=== PATIENT | female | born 1995 | race African-American/Black ===

== ENCOUNTER 2017-02-15 10:16 | Emergency (ER) | payer SELFPAY ==
[~2017-02-15] VITALS: Ht 170.2 cm; Wt 75.0 kg
[2017-02-15 10:18] VITALS: BP 127/66; PULSE 104; RESP 16; TEMP 99.1; O2SAT 98
--- NOTE | 2017-02-15 11:42 | PD ---
HPI Chief Complaint: Abdominal Pain Time Seen by Provider: 11:24 Travel History International Travel<30 days: No Contact w/Intl Traveler<30days: No Traveled to known affect area: No History of Present Illness HPI 21 year-old female presents to the emergency room for evaluation of bilateral, low pelvic pain for the past 3 days. Pain is constant and steadily worsening. She has not taken anything for symptoms. She reports associated dysuria that started this morning. Associated vaginal spotting started yesterday but no abnormal discharge. She had sex with a new partner 5 days ago but used a condom. Denies urgency, frequency, fever, chills, flank pain, nausea, and vomiting. She is on Depo. States her periods are pretty irregular but she had one 1 week ago. No chronic medical conditions of daily medications. FOR[facility]LY [facility] Past Medical History Medical History: Denies Significant Hx Tetanus Vaccination: < 5 Years Influenza Vaccination: No ?: Not LMP: 02/13/17 Past Surgical History Surgical History: No Previous Surgery Social History Alcohol Use: No Tobacco Use: No Substance Use: Yes (THC) Allergies-Medications (Allergen,Severity, Reaction): Coded Allergies: pineapple (Verified Allergy, Severe, Anaphylaxis, 02/15/17) Reported Meds & Prescriptions Reported Meds & Active Scripts Active No Active Prescriptions or Reported Medications Review of Systems Except as stated in HPI: all other systems reviewed are Neg Physical Exam Narrative GENERAL: Well-nourished, well-developed female in no acute distress. Afebrile. Ambulatory. Moving easily in bed. SKIN: Focused skin assessment warm/dry. HEAD: Normocephalic. EYES: No scleral icterus. No injection or drainage. NECK: Supple, trachea midline. No JVD or lymphadenopathy. CARDIOVASCULAR: Regular rate and rhythm without murmurs, gallops, or rubs. RESPIRATORY: Breath sounds equal bilaterally. No accessory muscle use. GASTROINTESTINAL: Abdomen soft, nondistended. Tenderness to palpation of the pelvic region. No peritoneal signs. No rebound tenderness or guarding. GENITOURINARY: Examined in the presence of a nurse. Normal external genitalia without lesions or erythema. Vaginal vault with mild blood and yellow, foul- smelling discharge. Cervical os was closed with yellow drainage. No cervical motion tenderness. Uterus nontender and nonenlarged. Bilateral adnexa mildly tender to palpation without masses. Data Data Last Documented VS Vital Signs Date Time Temp Pulse Resp B/P (MAP) Pulse Ox O2 Delivery O2 Flow Rate FiO2 02/15/17 10:18 99.1 104 16 127/66 (86) 98 Orders Orders Gc And Chlamydia Pcr (02/15/17 11:36) Wet Prep Profile (02/15/17 11:36) Urinalysis - C+S If Indicated (02/15/17 11:36) Azithromycin Powd Pack (Zithromax Powd P (02/15/17 11:45) Ceftriaxone Inj (Rocephin Inj) (02/15/17 11:45) Lidocaine 1% Inj (50 Ml) (Xylocaine 1% I (02/15/17 11:45) Ed Urine Pregnancytest Poc (02/15/17 11:36) Urine Culture (02/15/17 11:30) Labs Laboratory Tests Test 02/15/17 11:30 02/15/17 11:45 Urine Color YELLOW Urine Turbidity HAZY Urine pH 6.5 Urine Specific [place] 1.032 Urine Protein 30 mg/dL Urine Glucose (UA) NEG mg/dL Urine Ketones NEG mg/dL Urine Occult Blood MOD Urine Nitrite NEG Urine Bilirubin NEG Urine Urobilinogen 2.0 MG/DL Urine Leukocyte Esterase LARGE Urine RBC 2 /hpf Urine WBC 33 /hpf Urine Squamous Epithelial Cells 3 /hpf Urine Bacteria RARE /hpf Urine Mucus FEW /lpf Microscopic Urinalysis Comment CULTURE INDICATED Clue Cells (Wet Prep) PRESENT Vaginal Trichomonas (Wet Prep) NONE SEEN Vaginal Yeast (Wet Prep) NONE SEEN MDM Medical Decision Making Medical Screen Exam Complete: Yes Emergency Medical Condition: Yes Medical Record Reviewed: Yes Differential Diagnosis PID, UTI, STD Narrative Course 21-year-old male presents to the emergency room for evaluation of pelvic pain for the past 3 days. She has associated dysuria that started 2 days ago. No systemic signs of infection. Patient had intercourse with a new partner 5 days ago. She denies any vaginal discharge other than some spotting. Last menstrual cycle was 1 week ago. Abdomen is benign, soft. She has moderate tenderness to palpation of the pelvic region. Pelvic exam reveals foul-smelling , yellow discharge from the os and mild blood in the vaginal vault. No cervical motion tenderness. Bilateral adnexa mildly tender without masses. Patient be treated empirically with ceftriaxone and azithromycin. Wet prep shows clue cells. UA shows evidence of UTI. Patient will be treated with Keflex and Flagyl. Told to follow up with a primary care physician or return for worsening symptoms. She understands and agrees to plan.. Diagnosis Primary Impression: Bacterial vaginosis Additional Impression: UTI (urinary tract infection) Qualified Codes: N30.00 - Acute cystitis without hematuria Referrals: Primary Care Physician Additional Instructions: Rest and drink plenty of fluids. Take Flagyl as directed, until gone. Do not drink alcohol while taking this medication. Take Keflex as directed, until gone. Follow up with a primary care physician. Return to emergency room for worsening symptoms, as discussed. Med/Other Pt SpecificInfo: Prescription(s) given Scripts Cephalexin (Keflex) 500 Mg Cap 500 MG PO Q12H for Infection for 7 Days, #14 CAP 0 Refills Prov: Justina Rodriguez DO 02/15/17 Metronidazole (Flagyl) 500 Mg Tab 500 MG PO BID for Infection for 7 Days, #14 TAB 0 Refills Prov: Justina Rodriguez DO 02/15/17 Disposition: 01 DISCHARGE HOME Condition: Stable Yohana Gonzalez Feb 15, 2017 11:42
[2017-02-15] MEDS ORDERED: cefTRIAXone 250 MG VIAL IM ONE (11:45)
[2017-02-15] MEDS ORDERED: AZITHROMYCIN PWD FOR SUSP 1 GM PACKET PO ONE (11:45)
[2017-02-15] MEDS ORDERED: LIDOCAINE HCL 1% 50 ML VIAL IM ONE (11:45)
[2017-02-15 12:09] LABS: BACTERIA, URINE RARE /hpf; BLOOD, URINE MOD (NEG); GLUCOSE,URINE NEG (NEG); KETONE, URINE NEG (NEG); MUCUS URINE FEW /lpf (OCC); NITRITE,URINE NEG (NEG); PH, URINE 6.5 (5.0-8.5); SQUAMOUS EPITHELIAL CELL URINE 3 /hpf (0-5); URINE COLOR YELLOW (YELLW/STRAW)
[2017-02-15 12:13] LABS: COMMENT (UR) CULTURE INDICATED; CULTURE IF INDICATED CULTURE INDICATED
[2017-02-15] MEDS ORDERED: CEPH-460 PO (12:45)
[2017-02-15] MEDS ORDERED: METR-1 PO (12:45)
[2017-02-15 15:10] LABS: CHLAMYDIA PCR DETECTED (NOT DETECT); NEISSERIA PCR DETECTED (NOT DETECT)
== END 2017-02-15 13:26 | disposition home or self-care (01) ==
LOC: NEPD 10:16
DX: N76.0 Acute vaginitis (principal); B96.89 Other specified bacterial agents as the cause of diseases classified elsewhere; N30.00 Acute cystitis without hematuria
CPT/HCPCS: 81001; 84703; 87086; 87210; 87491; 87591; 96372; 99284; J0696